=== PATIENT | female | born 1950 | race Caucasian/White ===

== ENCOUNTER → 2017-01-31 | Outpatient (CLI) | payer MEDICARE, BC, OTHER ==
[~2017-01-31] MED LIST: DENOSUMAB 60 MG/ML 1 ML SYRINGE SQ ONE
[2017-01-31 13:59] VITALS: BP 140/74; PULSE 72; RESP 16; TEMP 98.2
== END | disposition home or self-care (01) ==
LOC: PROCWHC3 13:28
PROVIDERS: ATTEND Family Medicine
DX: M81.0 Age-related osteoporosis without current pathological fracture (principal)
CPT/HCPCS: 96372; J0897

== ENCOUNTER 2019-12-14 20:15 | Emergency (ER) | payer MEDICARE, BC, OTHER ==
[2019-12-14 20:25] VITALS: TEMP 99.7
[2019-12-14] MEDS ORDERED: DIPH,PERTUS(ACELL)TETVAC-LF 0.5 ML VIAL IM ONE (20:32)
--- NOTE | 2019-12-14 20:45 | ED ---
Fall HPI - General Chief Complaint: Fall Stated Complaint: Fall, Head Injury Time Seen by Provider: 12/14/19 20:25 Source: patient Mode of arrival: ambulatory - History of Present Illness Initial Comments: 69-year-old female presenting today for fall. Patient states that she fell and hit the back for head when attending for her shoes on and she lost her balance striking her head. Patient states she did not lose consciousness she denies any headache nausea vomiting visual changes. Patient denies any severe neck pain or pain with movement she states it feels slightly stiff. Patient states the bleeding has been controlled the back of her head and she has a lump. Patient was unsure she needed repair since she noticed the bleeding and presents emergency department for evaluation. Patient denies any anticoagulation use. Patient denies any chest pain abdominal pain or injury to the upper or lower extremity is. Patient no additional complaints she is ambulatory and appears well on arrival very pleasant. BP present on arrival, patient denies chest pain, SOB, dizziness, visual changes, nausea, abdominal pain, urinary changes, flank pain. Patient states she is out of her BP medications. - Related Data Home Medications Medication Instructions Recorded Confirmed Losartan [Cozaar] 25 mg PO HS 08/15/14 01/31/17 Simvastatin [Zocor] 40 mg PO DAILY 08/15/14 01/31/17 amLODIPine BESYLATE [Amlodipine 10 mg PO DAILY 08/15/14 01/31/17 Besylate] clonazePAM [Clonazepam] 0.5 mg PO BID 08/15/14 01/31/17 lamoTRIgine [Lamotrigine] 25 mg PO BID 08/15/14 01/31/17 risperiDONE [RisperDAL] 1 mg PO HS 08/15/14 01/31/17 Previous Rx's Medication Instructions Recorded Losartan [Cozaar] 25 mg PO DAILY 7 Days #7 tab 12/14/19 Allergies Allergy/AdvReac Type Severity Reaction Status Date / Time No Known Allergies Allergy Verified 12/14/19 20:25 Review of Systems ROS Statement: Those systems with pertinent positive or pertinent negative responses have been documented in the HPI. ROS Other: All systems not noted in ROS Statement are negative. Past Medical History Past Medical History: Hypertension, Memory Impairment Additional Past Medical History / Comment(s): Osteoporosis History of Any Multi-Drug Resistant Organisms: None Reported Past Surgical History: No Surgical Hx Reported Additional Past Surgical History / Comment(s): COLONOSCOPY Past Anesthesia/Blood Transfusion Reactions: No Reported Reaction Past Psychological History: Anxiety, Depression Smoking Status: Never smoker Past Alcohol Use History: None Reported Past Drug Use History: None Reported General Exam - General Exam Comments Initial Comments: General: The patient is awake and alert, in no distress Eye: +3 mm pupils are equal, round and reactive to light, extra-ocular movements are intact. No nystagmus. There is normal conjunctiva bilaterally. No signs of icterus. Ears, nose, mouth and throat: There are moist mucous membranes and no oral lesions. Neck: The neck is supple, there is no tenderness or JVD. No midline tenderness to palpation of the cervical spine, full ROM without difficulty, Cardiovascular: There is a regular rate and rhythm. No murmur, rub or gallop is appreciated. Respiratory: Lungs are clear to auscultation, respirations are non-labored, breath sounds are equal. No wheezes, stridor, rales, or rhonchi. Musculoskeletal: Normal ROM, no tenderness. Strength 5/5 of the UE and LE b/l. Sensation intact. radial pulses equal bilaterally 2+. Neurological: A&O x 3. CN II-XII intact grossly, There are no obvious motor or sensory deficits. Coordination appears grossly intact. Speech is normal. Skin: Skin is warm and dry and no rashes or lesions are noted. Occipital hematoma with an abrasion that is currently not bleeding, no crepitus no indentation. Psychiatric: Cooperative, appropriate mood & affect, normal judgment. Limitations: no limitations Course Vital Signs 12/14/19 12/14/19 20:22 21:25 Temperature 99.7 F H Pulse Rate 71 69 Respiratory 16 18 Rate Blood Pressure 215/104 211/101 O2 Sat by Pulse 96 97 Oximetry Medical Decision Making - Medical Decision Making 69-year-old feel present for fall head injury. Hematoma with abrasion. No laceration. CT of brain and C-spine revealed no acute abnormality chronic changes. Patient's blood pressure elevated arrival no symptoms. Patient out of blood pressure medications with known hypertension. Patient is prescribed Prilosec and. Patient has some memory loss chronically so I discussed care plan and findings today with patient's daughter who is agreeable to care plan to discharge at this time. I did discuss this case including patient's vital signs my attending provider who is agreeable to care plan discharge at this time. Disposition Clinical Impression: Fall, Hematoma, Abrasion, Hypertension Disposition: HOME SELF-CARE Condition: Good Instructions (If sedation given, give patient instructions): Fall Prevention (ED) Additional Instructions: Please use medication as discussed. Please follow-up with family doctor in the next 2 days. Please return to emergency room if the symptoms increase or worsen or for any other concerns. Prescriptions: Losartan [Cozaar] 25 mg PO DAILY 7 Days #7 tab Is patient prescribed a controlled substance at d/c from ED?: No Referrals: Chadwick Felder DO [Primary Care Provider] - 1-2 days Time of Disposition: 21:08
--- NOTE | 2019-12-14 21:06 | CT ---
EXAMINATION TYPE: CT brain cspine wo con DATE OF EXAM: 12/14/2019 COMPARISON: MRI brain April 2014 HISTORY: Fall with posterior head injury and neck pain. CT DLP: 1253.6 mGycm. Automated Exposure Control for Dose Reduction was Utilized. TECHNIQUE: CT scan of the head and cervical spine are performed without contrast. FINDINGS: There is no acute intracranial hemorrhage or midline shift identified. Mild ventricular a nd sulcal prominence. Areas of low attenuation symmetric deep bilateral parietal lobes axial image 41 . The globes are intact and the visualized sinuses are clear. The calvarium is intact. Cervical spine is visualized in its entirety from C1 through upper thoracic levels and coronal images demonstrate slight levoconvex scoliotic curvature upper thoracic spine without evidence of acute fra cture or dislocation. Prevertebral soft tissue appears within normal limits. The C1-C2 articulation is within normal limits on the coronal images. Vertebral body heights are maintained. Mild to moder ate multilevel disc space narrowing greatest at C6-C7 level. Posterior spurring effaces anterior thec al sac at C3-C4 and C6-C7 levels. Review of axial images shows uncovertebral facet degenerative roland es bilaterally in the upper to mid cervical spine. Slightly heterogeneous normal-sized thyroid. Lung apices show emphysematous change and motion artifact degradation with mild to moderate biapical pleur al/parenchymal scarring. IMPRESSION: 1. There is no acute fracture or dislocation evident in the cervical spine. 2. No acute intracranial hemorrhage or midline shift is seen. Mild to moderate diffuse cerebral atrop hy and moderate nonspecific white matter changes felt in basis of product of chronic small vessel isc hemic change. Other etiologies not excluded as there is progression from 2014 MRI study noted.
[2019-12-14] MEDS ORDERED: LOSARTAN 25 MG TAB PO STA (21:24)
[2019-12-14 21:27] VITALS: BP 211/101; PULSE 69; RESP 18
== END 2019-12-14 21:49 | disposition home or self-care (01) ==
LOC: EC 20:15
DX: S00.03XA Contusion of scalp, initial encounter (principal); Z23 Encounter for immunization; I10 Essential (primary) hypertension; R41.3 Other amnesia; F41.9 Anxiety disorder, unspecified; F32.9 Major depressive disorder, single episode, unspecified; Z79.899 Other long term (current) drug therapy; W18.09XA Striking against other object with subsequent fall, initial encounter
CPT/HCPCS: 70450; 72125; 90471; 90715; 99283

== ENCOUNTER 2021-03-20 07:48 | Day surgery (SDC) | payer MEDICARE, BC, OTHER ==
[2021-03-19 13:02] VITALS: BMI 26.2
[2021-03-20] MEDS ORDERED: HEPARIN SODIUM,PORCINE/PF 5,000 UNIT/0.5 ML SYRINGE SQ ONE (08:19)
[2021-03-20] MEDS ORDERED: ONDANSETRON 4 MG/2 ML VIAL ONE (08:19)
[2021-03-20] MEDS ORDERED: ONDANSETRON 4 MG/2 ML VIAL IVP ONE (08:22)
[2021-03-20] MEDS ORDERED: DEXAMETHASONE SOD PHOSPHATE 4 MG/ML 1 ML VIAL IVP ONE (08:22)
[2021-03-20] MEDS ORDERED: LACTATED RINGERS 1,000 ML IV ONE ×2 (08:22→11:08)
[2021-03-20] MEDS ORDERED: HEPARIN SODIUM,PORCINE/PF 5,000 UNIT/0.5 ML SYRINGE SQ STA (08:50)
--- NOTE | 2021-03-20 08:53 | P.GSHP ---
History of Present Illness H&P Date: 03/20/21 Chief Complaint: Right upper quadrant pain This a 70-year-old female who presents today for laparoscopic cholecystectomy. Patient's had complaints of chronic pain. She responds position for choledocholithiasis. She is known to have gallstones. Past Medical History Past Medical History: Hypertension, Memory Impairment Additional Past Medical History / Comment(s): Osteoporosis. Sl varicose veins. Gallstones History of Any Multi-Drug Resistant Organisms: None Reported Past Surgical History: No Surgical Hx Reported Additional Past Surgical History / Comment(s): COLONOSCOPY. EGD Past Anesthesia/Blood Transfusion Reactions: No Reported Reaction Smoking Status: Never smoker - Past Family History Mother Family Medical History: No Reported History Medications and Allergies Home Medications Medication Instructions Recorded Confirmed Type clonazePAM [Clonazepam] 0.5 mg PO BID 08/15/14 03/19/21 History lamoTRIgine [Lamotrigine] 25 mg PO BID 08/15/14 03/20/21 History Losartan [Cozaar] 50 mg PO DAILY 03/19/21 03/19/21 History Venlafaxine HCl [Effexor] 225 mg PO DAILY 03/19/21 03/20/21 History Allergies Allergy/AdvReac Type Severity Reaction Status Date / Time No Known Allergies Allergy Verified 03/20/21 08:07 Surgical - Exam Vital Signs Temp Pulse Resp BP Pulse Ox 97.0 F L 65 17 194/84 98 03/20/21 08:14 03/20/21 08:14 03/20/21 08:14 03/20/21 08:14 03/20/21 08:14 - General well developed, well nourished, no distress - Eyes PERRL - ENT normal pinna - Neck no masses - Respiratory normal expansion - Cardiovascular Rhythm: regular - Abdomen Abdomen: soft, non tender Assessment and Plan Assessment: Cholelithiasis History of choledocholithiasis We'll perform laparoscopic cholecystectomy
[2021-03-20] MEDS ORDERED: hydrALAZINE HCL 20 MG/ML 1 ML VIAL ONE (09:09)
[2021-03-20] MEDS ORDERED: NEOSTIGMINE 1 MG/ML 10 ML VIAL ONE (09:09)
[2021-03-20] MEDS ORDERED: SUCCINYLCHOLINE CHLORIDE 100 MG/5 ML SYR IV ONE (09:09)
[2021-03-20] MEDS ORDERED: ROCURONIUM 10 MG/ML (5 ML VIAL) IV ONE (09:09)
[2021-03-20] MEDS ORDERED: KETAMINE 10 MG/ML 20 ML VIAL ONE (09:09)
[2021-03-20] MEDS ORDERED: fentaNYL (PF) 50 MCG/ML 2 ML AMP ONE (09:09)
[2021-03-20] MEDS ORDERED: LIDOCAINE 1% INJ 10MG/ML (20 ML MDV) ONE (09:09)
[2021-03-20] MEDS ORDERED: GLYCOPYRROLATE 0.2 MG/ML 2 ML VIAL ONE (09:09)
[2021-03-20] MEDS ORDERED: ePHEDrine SULFATE/0.9% NACL/PF 50 MG/5 ML SYRINGE IV ONE (09:09)
[2021-03-20] MEDS ORDERED: PROPOFOL 10 MG/ML 20 ML VIAL IV ONE (09:09)
[2021-03-20] MEDS ORDERED: MIDAZOLAM 2 MG/2 ML VIAL ONE (09:09)
[2021-03-20] MEDS ORDERED: SODIUM CHLORIDE 0.9% 50 ML with ceFAZolin 2,000 MG IV ONE ×2 (09:11)
[2021-03-20] MEDS ORDERED: BUPIVACAINE (PF) 0.5% 30 ML VIAL SQ ONE (09:33)
--- NOTE | 2021-03-20 10:00 | P.OP ---
Date of Procedure: 03/20/21 Preoperative Diagnosis: Cholelithiasis Postoperative Diagnosis: Cholelithiasis, cholecystitis Procedure(s) Performed: Laparoscopic cholecystectomy Anesthesia: EVAN Surgeon: Shaheed Ruggiero Estimated Blood Loss (ml): 5 Pathology: other (Gallbladder) Condition: stable Disposition: PACU Description of Procedure: The patient was placed on the operating table. The patient received a general endotracheal tube anesthesia. The patients abdomen was prepped and draped in the usual sterile fashion. Through an infraumbilical stab incision, the fascia of the anterior abdominal wall was grasped with a pair of Kochers and then the Veress needle was placed in the peritoneal cavity. Position of the Veress needle was confirmed with positive drop test. The abdomen was then insufflated. After adequate insufflation, the 10 mm trocar was placed in the peritoneal cavity. Following this the laparoscope was placed in the peritoneal cavity. The patient was placed in the head-up, right side up position and then a 5 mm trocar was placed in the right lateral and right subcostal position under direct visualization. A 8 mm trocar was placed in the epigastric position. The gallbladder was grasped in the fundus and infundibulum. Traction on the gallbladder was placed in the lateral and the cephalad positions. The triangle of Calot was visualized.. The cystic duct was bluntly dissected until the union of the cystic duct and common bile duct was seen. A critical view of safety was achieved. The cystic duct was then divided and sealed with the Harmonic scissors. A PDS Endoloop was then placed throughout the cystic duct stump. The cystic artery divided and sealed with the Harmonic scissors. The gallbladder was then removed from the liver bed using Harmonic scissors. The gallbladder was then extracted through the epigastric port site. Operative field was checked for any bleeding spots and Harmonic scissors was used to coagulate the liver bed. The abdomen was irrigated. The trocars were removed. The skin was closed using interrupted 3-0 Vicryl suture. Dermabond dressing were applied. The patient tolerated the procedure well.
[2021-03-20 10:06] VITALS: TEMP 96.8
[2021-03-20] MEDS ORDERED: KETOROLAC 15 MG/ML 1 ML VIAL ONE (10:11)
[2021-03-20] MEDS ORDERED: KETOROLAC 15 MG/ML 1 ML VIAL IVP ONE (10:14)
[2021-03-20] MEDS ORDERED: HYDROmorphone 0.5 MG/0.5 ML SYRINGE IVP ONE ×2 (10:16→10:30)
[2021-03-20 11:48] VITALS: RESP 16
[2021-03-20 11:58] VITALS: BP 111/67; PULSE 68
== END 2021-03-20 12:21 | disposition home or self-care (01) ==
LOC: OR 07:48
PROVIDERS: ATTEND Surgery
DX: K80.12 Calculus of gallbladder with acute and chronic cholecystitis without obstruction (principal); G89.29 Other chronic pain; I10 Essential (primary) hypertension; M81.0 Age-related osteoporosis without current pathological fracture; F41.8 Other specified anxiety disorders; R41.3 Other amnesia
CPT/HCPCS: 47562; 88304; J2250; J0360; J1100; J2710; J2405; J0690; J2001; J3010; J1885; J0330; J2704; J1170; J1644

== ENCOUNTER 2023-06-21 17:46 | Emergency (ER) | payer MEDICARE, BC, OTHER ==
--- NOTE | 2023-06-21 20:03 | ED ---
Nausea/Vomiting/Diarrhea HPI - General Chief complaint: Nausea/Vomiting/Diarrhea Stated complaint: vomiting Time Seen by Provider: 06/21/23 19:22 Source: patient, family, RN notes reviewed Mode of arrival: ambulatory Limitations: no limitations - History of Present Illness Initial comments: Patient is a 72-year-old female presented ER with chief complaint of vomiting. Patient states she was eating chicken last night when she had the sensation that it was stuck in her throat. Patient states she had tried drinking water and apple sauce after and it came right back up. Patient denies any difficulty breathing or dysphagia. - Related Data Home Medications Medication Instructions Recorded Confirmed clonazePAM [Clonazepam] 0.5 mg PO BID 08/15/14 03/19/21 lamoTRIgine [Lamotrigine] 25 mg PO BID 08/15/14 03/20/21 Losartan [Cozaar] 50 mg PO DAILY 03/19/21 03/19/21 Venlafaxine HCl [Effexor] 225 mg PO DAILY 03/19/21 03/20/21 Previous Rx's Medication Instructions Recorded Acetaminophen Tab [Tylenol] 650 mg PO Q6H #30 tab 03/20/21 Docusate [Colace] 100 mg PO BID #20 capsule 03/20/21 Ibuprofen [Motrin] 600 mg PO Q6HR PRN #40 tab 03/20/21 oxyCODONE HCL [OxyIR] 5 mg PO Q6H PRN 3 Days #10 tab 03/20/21 Allergies Allergy/AdvReac Type Severity Reaction Status Date / Time No Known Allergies Allergy Verified 06/21/23 19:12 Review of Systems ROS Statement: Those systems with pertinent positive or pertinent negative responses have been documented in the HPI. ROS Other: All systems not noted in ROS Statement are negative. Past Medical History Past Medical History: Hypertension, Memory Impairment Additional Past Medical History / Comment(s): Osteoporosis. Sl varicose veins. Gallstones History of Any Multi-Drug Resistant Organisms: None Reported Past Surgical History: No Surgical Hx Reported Additional Past Surgical History / Comment(s): COLONOSCOPY. EGD Past Anesthesia/Blood Transfusion Reactions: No Reported Reaction Past Psychological History: Anxiety, Depression Smoking Status: Never smoker Past Alcohol Use History: None Reported Past Drug Use History: None Reported - Past Family History Mother Family Medical History: No Reported History General Exam Limitations: no limitations General appearance: alert, in no apparent distress Head exam: Present: atraumatic, normocephalic, normal inspection Respiratory exam: Present: normal lung sounds bilaterally. Absent: respiratory distress, wheezes, rales, rhonchi, stridor Cardiovascular Exam: Present: regular rate, normal rhythm, normal heart sounds. Absent: systolic murmur, diastolic murmur, rubs, gallop, clicks GI/Abdominal exam: Present: soft, normal bowel sounds. Absent: distended, tenderness, guarding, rebound, rigid Neurological exam: Present: alert, oriented X3, CN II-XII intact Psychiatric exam: Present: normal affect, normal mood Skin exam: Present: warm, dry, intact, normal color. Absent: rash Course Vital Signs 06/21/23 19:06 Temperature 98.5 F Pulse Rate 72 Respiratory 20 Rate Blood Pressure 172/103 O2 Sat by Pulse 99 Oximetry Medical Decision Making - Medical Decision Making Was pt. sent in by a medical professional or institution (, PA, RN [facility], urgent care, hospital, or fci...) When possible be specific @ -No Did you speak to anyone other than the patient for history (EMS, parent, family, police, friend...)? What history was obtained from this source @ -Daughter Did you review nursing and triage notes (agree or disagree)? Why? @ -I reviewed and agree with nursing and triage notes Were old charts reviewed (outside hosp., previous admission, EMS record, old EKG, old radiological studies, urgent care reports/EKG's, fci records)? Report findings @ -No old charts were reviewed Differential Diagnosis (chest pain, altered mental status, abdominal pain women, abdominal pain men, vaginal bleeding, weakness, fever, dyspnea, syncope, headache, dizziness, GI bleed, back pain, seizure, CVA, palpatations, mental health, musculoskeletal)? @ -Differential Abdominal Pain Women:Appendicitis, Cholecystitis, diverticulosis, ischemic bowel, pancreatitis, hepatitis, UTI, gastroenteritis, AAA, incarcerated hernia, bowel obstruction, constipation, inflammatory bowel, hepatitis, peptic ulcer disease, splenic infarction, perforated viscus, vulvitis, ovarian torsion, PID, kidney stone, placenta abruption, this is not meant to be an all-inclusive list EKG interpreted by me (3pts min.). @ -None X-rays interpreted by me (1pt min.). @ -Chest x-ray shows no acute cardiopulmonary process. No foreign bodies noted. CT interpreted by me (1pt min.). @ -None done U/S interpreted by me (1pt. min.). @ -None done What testing was considered but not performed or refused? (CT, X-rays, U/S, labs)? Why? @ -None What meds were considered but not given or refused? Why? @ -None Did you discuss the management of the patient with other professionals (beni connolly i.eYamile Underwood, PA, RN [employer], lab, RT, psych nurse, social worker assistant, utility worker forge, teacher, senior administrative services officer, shoe caser)? Give summary @ -No Was smoking cessation discussed for >3mins.? @ -No Was critical care preformed (if so, how long)? @ -No Were there social determinants of health that impacted care today? How? (Homelessness, low income, unemployed, alcoholism, drug addiction, transportation, low edu. Level, literacy, decrease access to med. care, senior care, rehab)? @ -No Was there de-escalation of care discussed even if they declined (Discuss DNR or withdrawal of care, Hospice)? DNR status @ -No What co-morbidities impacted this encounter? (DM, HTN, Smoking, COPD, CAD, Cancer, CVA, ARF, Chemo, Hep., AIDS, mental health diagnosis, sleep apnea, morbid obesity)? @ -None Was patient admitted / discharged? Hospital course, mention meds given and route, prescriptions, significant lab abnormalities, going to OR and other pertinent info. @ -Discharged. Patient's vitals remained stable. Upon examination, patient had non-labored respirations and did not appear in distress. Lungs clear to auscultation. In the ER, I observed as patient drank water. Patient did not regurgitate water. I also tried jairo kim which was also not regurgitated. Patient received chest x-ray which was negative for acute cardiopulmonary process and no foreign bodies were noted. Patient will be discharged in stable condition with follow-up to PCP. Return parameters were discussed. Patient expressed understanding and agreement with care plan. Undiagnosed new problem with uncertain prognosis? @ -No Drug Therapy requiring intensive monitoring for toxicity (Heparin, Nitro, Insulin, Cardizem)? @ -No Were any procedures done? @ -No Diagnosis/symptom? @ -Dysphasia/ rule out food bolus in esophagus Acute, or Chronic, or Acute on Chronic? @ -Acute Uncomplicated (without systemic symptoms) or Complicated (systemic symptoms)? @ -Uncomplicated Side effects of treatment? @ -No Exacerbation, Progression, or Severe Exacerbation? @ -No Poses a threat to life or bodily function? How? (Chest pain, USA, PA, pneumonia, PE, COPD, DKA, ARF, appy, cholecystitis, CVA, Diverticulitis, Homicidal, Suicidal, threat to staff... and all critical care pts) @ -No - Radiology Data Radiology results: report reviewed, image reviewed Disposition Clinical Impression: Dysphasia Disposition: HOME SELF-CARE Condition: Stable Additional Instructions: Please return to the Emergency Department if symptoms worsen or any other concerns. Is patient prescribed a controlled substance at d/c from ED?: No Referrals: Chadwick Felder DO [Primary Care Provider] - 1-2 days Time of Disposition: 20:35
[2023-06-21 20:48] VITALS: BP 160/90; PULSE 77; RESP 16; TEMP 98.7
--- NOTE | 2023-06-21 20:49 | XR ---
EXAMINATION TYPE: XR chest 2V DATE OF EXAM: 06/21/2023 7:46 PM CLINICAL INDICATION:Female, 72 years old with history of pain; [facility] COMPARISON: None TECHNIQUE: XR chest 2V. Frontal PA and lateral views of the chest. FINDINGS: Lines/Tubes: None. Heart/mediastinum: Cardiomediastinal silhouette appears well-defined. Heart size borderline enlarged . Mild calcification and tortuosity of the aorta. Retrocardiac extra density may represent hiatal h ernia. Pulmonary vascularity: Not increased, Lungs/Pleura: Prominent interstitial lung markings are seen scattered throughout the lungs. No eviden ce of focal consolidation, pneumothorax or pleural effusion. Musculoskeletal: No acute osseous abnormality demonstrated in the limits of the exam. Mild degenerat tarah changes of the spine and shoulders. Other findings: None. IMPRESSION: 1. Borderline mild cardiomegaly. No evidence of decompensated CHF. 2. Mild calcification and tortuosity of the aorta. 3. Retrocardiac extra density may represent hiatal hernia. Further evaluation/confirmation with outp atient CT could be obtained as clinically warranted. 4. Chronic appearing interstitial lung markings, without evidence of acute airspace disease.
== END 2023-06-21 20:48 | disposition home or self-care (01) ==
LOC: EC 17:46
DX: R47.02 Dysphasia (principal); M81.0 Age-related osteoporosis without current pathological fracture; I10 Essential (primary) hypertension; F41.9 Anxiety disorder, unspecified; F32.A Depression, unspecified; Z79.899 Other long term (current) drug therapy
CPT/HCPCS: 71046; 99284